=== PATIENT | female | born 1995 | race Caucasian/White ===

== ENCOUNTER → 2017-04-15 | Emergency (ER) | payer MEDICAID, OTHER ==
[~2017-04-15] MED LIST: ETON1VAG7 VG; GENT3.5O3 OP; NS(*) 0.9% 1000 ML BAG 1,000 ML IV ONE
--- NOTE | 2017-04-15 22:12 | ER Report ---
History and Physical Time Seen By MD: 22:07 HPI/ROS CHIEF COMPLAINT: Feeling shaky HISTORY OF PRESENT ILLNESS: This is a 22-year-old female. She's been feeling shaky today. It does seem to worsen when she gets up from a seated or laying down position. She has been drinking normally. No nausea or vomiting. No chest pain or palpitations. She denies any shortness of breath. She is having normal bowel movements. No problems with dysuria or urinary urgency. No vaginal bleeding or discharge or leakage of fluid. Baby is moving. 13 weeks and no problems with the thus far. No rashes or musculoskeletal pain. Allergies: Coded Allergies: peanut (Unverified Allergy, Unknown, 01/14/15) Home Meds Discontinued Reported Medications Etonogestrel/Ethinyl Estradiol (NUVARING VAGINAL RING) 1 Each Vag.ring, 1 EACH VG, VAG.RING 01/14/15 Discontinued Scripts Gentamicin Sulfate (GENTAK) 3.5 Gm Oint...g., 3.5 GM OP TID, #3.5 Prov:JOSE LUIS CHILDS DO 01/14/15 Reviewed Nurses Notes: Yes Hx Smoking: No Smoking Status: Never Smoker Hx Substance Use Disorder: No Hx Alcohol Use: No Constitutional Vital Sign - Last 24 Hours 04/15/17 04/15/17 04/15/17 04/15/17 21:55 21:58 21:59 22:03 Temp 98.0 Pulse 82 79 81 Resp 16 20 10 B/P (MAP) 130/77 (94) 130/77 Pulse Ox 100 100 94 O2 Delivery Room Air 04/15/17 04/15/17 04/15/17 04/15/17 22:08 22:13 22:18 22:23 Pulse 76 72 77 64 Resp 8 12 29 20 Pulse Ox 100 99 98 04/15/17 04/15/17 04/15/17 04/15/17 22:28 22:33 22:38 22:43 Pulse 63 73 67 71 04/15/17 04/15/17 04/15/17 04/15/17 22:48 22:53 22:58 23:03 Pulse 71 69 66 67 04/15/17 04/15/17 04/15/17 23:08 23:13 23:43 Pulse 68 77 85 Resp 16 B/P (MAP) 132/87 (102) Pulse Ox 95 O2 Delivery Room Air Physical Exam General Appearance: Alert, no acute distress. Eyes: Pupils equal and round no injection. ENT: Normal oral mucosa. Moist mucous membranes. Neck: Neck is supple and non tender. Respiratory: Chest is non tender, lungs are clear to auscultation. Cardiac: regular rate and rhythm Gastrointestinal: Abdomen is soft and non tender, no masses, bowel sounds normal. No CVA tenderness. Musculoskeletal: Extremities have full range of motion. Non tender. Skin: No rashes or lesions. DIFFERENTIAL DIAGNOSIS: After history and physical exam differential diagnosis was considered for feeling shaky, will check for urinary tract infection, check electrolytes and complete blood count. Will give a liter of normal saline and reevaluate. Medical Decision Making Data Points Result Diagram: 04/15/17222104/15/172221 Laboratory Hematology Test 04/15/17 21:53 04/15/17 22:22 Urine Color Colorless Urine Clarity Clear Urine pH 6.0 pH (4.8-9.5) Urine Specific Rudyard 1.001 Urine Protein Negative mg/dL (NEGATIVE) Urine Glucose (UA) Negative mg/dL (NEGATIVE) Urine Ketones Negative mg/dL (NEGATIVE) Urine Blood Negative (NEGATIVE) Urine Nitrite Negative (NEGATIVE) Urine Bilirubin Negative (NEGATIVE) Urine Urobilinogen Negative mg/dL (0.2-1.9) Urine Leukocyte Esterase Negative (NEGATIVE) Urine RBC None /HPF (0-2/HPF) Urine WBC <1 /HPF (0-5/HPF) Urine Squamous Epithelial Cells Few /LPF (</=FEW) Urine Bacteria Negative /HPF (NONE-FEW) Urine Mucus None /HPF (NONE-FEW) Red Blood Count 4.83 M/uL (4.17-5.56) Mean Corpuscular Volume 87.5 fL (80.0-96.0) Mean Corpuscular Hemoglobin 29.8 pg (26.0-33.0) Mean Corpuscular Hemoglobin Concent 34.0 g/dL (32.0-36.0) Red Cell Distribution Width 14.0 % (11.5-14.5) Mean Platelet Volume 9.0 fL (7.2-11.1) Neutrophils (%) (Auto) 73.6 % (39.4-72.5) Lymphocytes (%) (Auto) 20.1 % (17.6-49.6) Monocytes (%) (Auto) 5.6 % (4.1-12.4) Eosinophils (%) (Auto) 0.4 % (0.4-6.7) Basophils (%) (Auto) 0.3 % (0.3-1.4) Nucleated RBC Relative Count (auto) 0.0 /100WBC Neutrophils # (Auto) 11.0 K/uL (2.0-7.4) Lymphocytes # (Auto) 3.0 K/uL (1.3-3.6) Monocytes # (Auto) 0.8 K/uL (0.3-1.0) Eosinophils # (Auto) 0.1 K/uL (0.0-0.5) Basophils # (Auto) 0.1 K/uL (0.0-0.1) Nucleated RBC Absolute Count (auto) 0.01 K/uL Sodium Level 133 mmol/L (137-145) Potassium Level 3.6 mmol/L (3.5-5.0) Chloride Level 101 mmol/L (98-107) Carbon Dioxide Level 21 mmol/L (22-31) Blood Urea Nitrogen 5 mg/dl (7-18) Creatinine 0.60 mg/dl (0.52-1.04) Glomerular Filtration Rate Calc > 60.0 Random Glucose 98 mg/dl (75-110) Calcium Level 9.2 mg/dl (8.4-10.2) Total Bilirubin 0.4 mg/dl (0.2-1.3) Aspartate Amino Transf (AST/SGOT) 16 U/L (0-35) Alanine Aminotransferase (ALT/SGPT) 19 U/L (0-56) Alkaline Phosphatase 88 U/L (0-126) Total Protein 7.4 gm/dl (6.3-8.2) Albumin 4.0 g/dl (3.5-5.0) Chemistry Test 04/15/17 21:53 04/15/17 22:22 Urine Color Colorless Urine Clarity Clear Urine pH 6.0 pH (4.8-9.5) Urine Specific Rudyard 1.001 Urine Protein Negative mg/dL (NEGATIVE) Urine Glucose (UA) Negative mg/dL (NEGATIVE) Urine Ketones Negative mg/dL (NEGATIVE) Urine Blood Negative (NEGATIVE) Urine Nitrite Negative (NEGATIVE) Urine Bilirubin Negative (NEGATIVE) Urine Urobilinogen Negative mg/dL (0.2-1.9) Urine Leukocyte Esterase Negative (NEGATIVE) Urine RBC None /HPF (0-2/HPF) Urine WBC <1 /HPF (0-5/HPF) Urine Squamous Epithelial Cells Few /LPF (</=FEW) Urine Bacteria Negative /HPF (NONE-FEW) Urine Mucus None /HPF (NONE-FEW) White Blood Count 14.9 k/uL (4.5-11.0) Red Blood Count 4.83 M/uL (4.17-5.56) Hemoglobin 14.4 g/dL (12.0-16.0) Hematocrit 42.2 % (34.0-47.0) Mean Corpuscular Volume 87.5 fL (80.0-96.0) Mean Corpuscular Hemoglobin 29.8 pg (26.0-33.0) Mean Corpuscular Hemoglobin Concent 34.0 g/dL (32.0-36.0) Red Cell Distribution Width 14.0 % (11.5-14.5) Platelet Count 228 K/uL (150-450) Mean Platelet Volume 9.0 fL (7.2-11.1) Neutrophils (%) (Auto) 73.6 % (39.4-72.5) Lymphocytes (%) (Auto) 20.1 % (17.6-49.6) Monocytes (%) (Auto) 5.6 % (4.1-12.4) Eosinophils (%) (Auto) 0.4 % (0.4-6.7) Basophils (%) (Auto) 0.3 % (0.3-1.4) Nucleated RBC Relative Count (auto) 0.0 /100WBC Neutrophils # (Auto) 11.0 K/uL (2.0-7.4) Lymphocytes # (Auto) 3.0 K/uL (1.3-3.6) Monocytes # (Auto) 0.8 K/uL (0.3-1.0) Eosinophils # (Auto) 0.1 K/uL (0.0-0.5) Basophils # (Auto) 0.1 K/uL (0.0-0.1) Nucleated RBC Absolute Count (auto) 0.01 K/uL Glomerular Filtration Rate Calc > 60.0 Calcium Level 9.2 mg/dl (8.4-10.2) Total Bilirubin 0.4 mg/dl (0.2-1.3) Aspartate Amino Transf (AST/SGOT) 16 U/L (0-35) Alanine Aminotransferase (ALT/SGPT) 19 U/L (0-56) Alkaline Phosphatase 88 U/L (0-126) Total Protein 7.4 gm/dl (6.3-8.2) Albumin 4.0 g/dl (3.5-5.0) Urinalysis Test 04/15/17 21:53 Urine Color Colorless Urine Clarity Clear Urine pH 6.0 pH (4.8-9.5) Urine Specific Rudyard 1.001 Urine Protein Negative mg/dL (NEGATIVE) Urine Glucose (UA) Negative mg/dL (NEGATIVE) Urine Ketones Negative mg/dL (NEGATIVE) Urine Blood Negative (NEGATIVE) Urine Nitrite Negative (NEGATIVE) Urine Bilirubin Negative (NEGATIVE) Urine Urobilinogen Negative mg/dL (0.2-1.9) Urine Leukocyte Esterase Negative (NEGATIVE) Urine RBC None /HPF (0-2/HPF) Urine WBC <1 /HPF (0-5/HPF) Urine Squamous Epithelial Cells Few /LPF (</=FEW) Urine Bacteria Negative /HPF (NONE-FEW) Urine Mucus None /HPF (NONE-FEW) ED Course/Re-evaluation Clinical Indication for ER IV: Hydration, IV Access ED Course Labs unremarkable. The patient does feel better after liter of normal saline. She will rest and increase fluid intake and follow up with [facility] as planned. Decision to Disposition Date: Apr 15, 2017 Decision to Disposition Time: 23:37 Depart Departure Latest Vital Signs Vital Signs Date Time Temp Pulse Resp B/P (MAP) Pulse Ox O2 Delivery O2 Flow Rate FiO2 04/15/17 23:43 85 16 132/87 (102) 95 Room Air 04/15/17 21:59 98.0 Impression: Primary Impression: Hyponatremia Condition: Improved Disposition: HOME OR SELF-CARE Patient Instructions: Hyponatremia (ED) Additional Instructions: Rest and increase fluid intake over the next few days. Follow-up with your [employer] as planned. VONDA URBINA MD Apr 15, 2017 22:12
[2017-04-15 22:32] LABS: PLATELET COUNT, AUTOMATED 228 K/uL (150-450)
[2017-04-15 23:43] VITALS: BP 132/87
== END ==
LOC: ER 22:00
DX: O26.891 Other specified pregnancy related conditions, first trimester (principal); Z3A.13 13 weeks gestation of pregnancy
CPT/HCPCS: 81001; 85025; 96360; 99284; J7030; 82040; 82247; 82310; 82374; 82435; 82565; 82947; 84075; 84132; 84155; 84295; 84450; 84460; 84520

== ENCOUNTER 2017-09-01 17:33 | Outpatient (CLI) | payer OTHER, MEDICAID ==
[~2017-09-01] VITALS: Ht 170.2 cm; Wt 83.0 kg
[~2017-09-01 17:33] MED LIST changes: -NS(*) 0.9% 1000 ML BAG 1,000 ML IV ONE
[2017-09-01] MEDS ORDERED: LR(*) 1000 ML BAG 1,000 ML ONE (18:35)
[2017-09-01] MEDS ORDERED: LR(*) 1000 ML BAG 1,000 ML IV PRN (18:39)
[2017-09-01 18:46] VITALS: BP 116/73; Ht 170.2 cm; Wt 83.0 kg
--- NOTE | 2017-09-01 20:42 | RADIOLOGY IMAGING REPORT ---
FACILITY: [facility] - [place] PATIENT NAME: Carlee Garber : 1995 MR: [id number] V: [id number] EXAM DATE: ORDERING PHYSICIAN: GOMEZ PEREZ TECHNOLOGIST: Location: [facility] - [place] Patient: Carlee Garber : 1995 Visit/Account:[id number] Date of Sevice: 09/01/2017 ultrasound: Indication: Vaginal bleeding and contractions. By clinical dating, the gestational age is 33 weeks 4 days. Technique: Limited evaluation, with Doppler. Comparison: None available. position and heart rate: There is a single live intrauterine gestation in a cephalic presentati on. The heart rate is 144. anatomy: Unremarkable, as visualized. A detailed anatomical survey was not performed. Measurements, EFA, and EDC: The BPD measures 8.4 cm, head circumference 30.3 cm, abdominal circumfere nce 29.2 cm, and femur length is 6.4 cm. The estimated age is 33 weeks 4 days. The EDC is 10/16/2017. T he EFW is 2156 g, 33rd percentile. Placenta: Anterior and homogeneous. There are no signs of placenta previa or abruption. Cervical length: Measures 4.6 cm. The cervix is closed. There is no evidence of funneling. Amniotic fluid: The DREW measures 19.0 cm. The largest fluid pocket was 6.4 cm. IMPRESSION: There is a single live intrauterine gestation in a cephalic presentation, as detailed abo ve. The estimated age is 33 weeks 4 days. No acute abnormality is identified. Report Dictated By: Ricky Munoz MD at 09/01/2017 8:29 PM Report E-Signed By: Ricky Munoz MD at 09/01/2017 8:38 PM WSN:[id number]
[2017-09-01] MEDS ORDERED: NIFEdipine 10 MG CAP PO PRN ×2 (21:10→23:35)
[2017-09-01] MEDS ORDERED: ACETAMINOPHEN 325 MG TAB PO PRN (21:25)
== END 2017-09-01 23:10 | disposition home or self-care (01) ==
LOC: UNDOADMIN 17:33 → OB 17:33 → L&D 17:33 → OB 17:33 → L&D 23:10 → UNDODISIN 23:10 → EDSTATUS 09-02 10:31
PROVIDERS: ATTEND Student in an Organized Health Care Education/Training Program
DX: O26.893 Other specified pregnancy related conditions, third trimester (principal); Z3A.33 33 weeks gestation of pregnancy
CPT/HCPCS: 59025; 76817; 81001; 99213; J7120

== ENCOUNTER 2017-09-24 21:11 | Outpatient (CLI) | payer OTHER, MEDICAID ==
[2017-09-01 18:46] VITALS: BMI 28.7
[2017-09-24] MEDS ORDERED: DLR(*) 1000 ML BAG 1,000 ML IV SCH (21:14)
[2017-09-24] MEDS ORDERED: FAMOTIDINE(*) 20MG/50ML PREMIX 50 ML IVPB PRN (21:14)
[2017-09-24] MEDS ORDERED: LR(*) 1000 ML BAG 1,000 ML IV SCH (21:14)
[2017-09-24] MEDS ORDERED: OXYTOCIN 30 UNIT/D5LR 500 ML 500 ML IV PRN (21:14)
[2017-09-24] MEDS ORDERED: fentaNYL CITR 100 MCG/2 ML AMP IVP PRN (21:15)
[2017-09-24] MEDS ORDERED: cefOXitin/DEX(*) 2GM/50ML PREM 50 ML IVPB PRN (21:15)
[2017-09-24] MEDS ORDERED: LIDOCAINE/SOD BICARB 8.4% SYR SC PRN (21:15)
[2017-09-24] MEDS ORDERED: METOCLOPRAMIDE 10 MG/2 ML SDV IVP PRN (21:15)
[2017-09-24] MEDS ORDERED: LIDOCAINE 1% LOCAL 300 MG/30ML INJ PRN (21:15)
[2017-09-24 22:19] LABS: PLATELET COUNT, AUTOMATED 204 K/uL (150-450)
== END 2017-09-25 00:05 | disposition home or self-care (01) ==
LOC: OB 21:11 → L&D 21:11 → UNDOADMIN 21:11 → OB 21:11 → L&D 09-25 00:05 → UNDODISIN 09-25 00:05 → EDSTATUS 09-27 10:55
PROVIDERS: ATTEND Obstetrics & Gynecology
DX: O47.1 False labor at or after 37 completed weeks of gestation (principal); Z3A.39 39 weeks gestation of pregnancy
CPT/HCPCS: 36415; 81001; 85025; 86850; 86900; 86901; 99213

== ENCOUNTER 2017-10-08 20:00 | Observation (INO) | payer OTHER, MEDICAID ==
[~2017-10-08] VITALS: Ht 170.2 cm; Wt 85.7 kg
[2017-10-08] MEDS ORDERED: LR(*) 1000 ML BAG 1,000 ML IV SCH (20:02)
[2017-10-08] MEDS ORDERED: OXYTOCIN 30 UNIT/D5LR 500 ML 500 ML IV PRN (20:02)
[2017-10-08] MEDS ORDERED: FAMOTIDINE(*) 20MG/50ML PREMIX 50 ML IVPB PRN (20:02)
[2017-10-08] MEDS ORDERED: ceFAZolin(*) 2GM/D5W 50ML 50 ML IVPB PRN (20:02)
[2017-10-08] MEDS ORDERED: FLUSH 10 ML SYR IVP PRN (20:05)
[2017-10-08] MEDS ORDERED: LIDOCAINE 1% LOCAL 300 MG/30ML INJ PRN (20:05)
[2017-10-08] MEDS ORDERED: LIDOCAINE/SOD BICARB 8.4% SYR SC PRN (20:05)
[2017-10-08] MEDS ORDERED: METOCLOPRAMIDE 10 MG/2 ML SDV IVP PRN (20:05)
[2017-10-08] MEDS ORDERED: fentaNYL CITR 100 MCG/2 ML AMP IVP PRN (20:05)
[2017-10-08 20:30] VITALS: BP 124/70; Ht 170.2 cm; Wt 85.7 kg
[2017-10-08] MEDS ORDERED: ACET500T68 PO (21:02)
[2017-10-08] MEDS ORDERED: ACETAMINOPHEN 500 MG TAB PO PRN (21:05)
== END 2017-10-08 22:31 | disposition home or self-care (01) ==
LOC: INTOOBSV 20:00 → UNDOADMOB 20:00 → OB 20:00 → UNDODISOB 22:50
PROVIDERS: ADMIT Student in an Organized Health Care Education/Training Program; ATTEND Student in an Organized Health Care Education/Training Program
DX: O26.893 Other specified pregnancy related conditions, third trimester (principal); Z3A.38 38 weeks gestation of pregnancy
CPT/HCPCS: G0378; G0379

== ENCOUNTER 2017-10-15 19:23 | Inpatient (IN) | payer OTHER, MEDICAID ==
[~2017-10-15] VITALS: Ht 170.2 cm; Wt 90.7 kg
[~2017-10-15 19:23] MED LIST changes: +ACET500T68 PO
[2017-10-15] MEDS ORDERED: FAMOTIDINE(*) 20MG/50ML PREMIX 50 ML IVPB PRN (19:44)
[2017-10-15] MEDS ORDERED: OXYTOCIN 30 UNIT/D5LR 500 ML 500 ML IV PRN (19:44)
[2017-10-15] MEDS ORDERED: cefOXitin/DEX(*) 2GM/50ML PREM 50 ML IVPB PRN (19:45)
[2017-10-15] MEDS ORDERED: fentaNYL CITR 100 MCG/2 ML AMP IVP PRN (19:45)
[2017-10-15] MEDS ORDERED: METOCLOPRAMIDE 10 MG/2 ML SDV IVP PRN (19:45)
[2017-10-15] MEDS ORDERED: DINOPROSTONE 10 MG INSERT PV ONE (19:45)
[2017-10-15] MEDS ORDERED: FLUSH 10 ML SYR IVP PRN (19:45)
[2017-10-15] MEDS ORDERED: LIDOCAINE 1% LOCAL 300 MG/30ML INJ PRN (19:45)
[2017-10-15] MEDS ORDERED: LIDOCAINE/SOD BICARB 8.4% SYR SC PRN (19:45)
[2017-10-15 20:06] LABS: PLATELET COUNT, AUTOMATED 216 K/uL (150-450)
[2017-10-15 20:09] VITALS: BP 131/81
[2017-10-15 20:11] VITALS: Ht 170.2 cm; Wt 90.7 kg
[2017-10-15] MEDS: DLR(*) 1000 ML BAG 1,000 ML IV PRN (20:44)
[2017-10-15] MEDS: ACETAMINOPHEN 325 MG TAB PO PRN (23:51)
[2017-10-16] VITALS (13 sets, daily range): BP systolic 105–140; BP diastolic 72–100
[2017-10-16] MEDS: LR(*) 1000 ML BAG 1,000 ML IV PRN ×2 (04:48→12:31)
[2017-10-16] MEDS: DLR(*) 1000 ML BAG 1,000 ML IV PRN ×2 (04:48→13:50)
--- NOTE | 2017-10-16 09:20 | History & Physical ---
History of Present Illness Age of Patient: 22 : 1 Para or TPAL: 0000 EDC per LMP: Oct 16, 2017 Estimated Gestational Age: 40 Chief Complaint IOL History of Present Illness The patient is a 22 year old 1 para 0000 admitted at 40 weeks estimated gestational age with an estimated date of delivery 10/16/17 . Patient is admitted for induction of labor . No vaginal bleeding. Good movement and occasional contractions. She was evaluated for active labor. She had an uncomplicated course. Her record was reviewed. Cervadil was placed last pm and contracted slowly over night. History Allergies: Coded Allergies: peanut (Unverified Allergy, Unknown, 01/14/15) Med Rec Home Meds Reported Medications Acetaminophen (TYLENOL EXTRA STRENGTH) 500 Mg Tablet, 500 MG PO, TAB 10/08/17 Exam General Exam Vital Signs Vital Signs Date Time Temp Pulse Resp B/P (MAP) Pulse Ox O2 Delivery O2 Flow Rate FiO2 10/15/17 20:09 98.4 98 16 131/81 (98) 96 Room Air Cardiovascular: Regular Rate and Rhythm Respiratory: Clear to Auscultation Abdomen: Gravid - Non-Tender Extremities: No Edema (4) Cervical Dialation: 4 Cervical Effacement (%): 75 Cervical Consistency: Soft Cervical Position: Mid Station: -1 Presentation: Vertex Uterine Contractions(Q min): 2 Uterine Contraction Strength: Moderate Fetus Heart Tones: 130 Heart Tone Variabilty: Moderate FHT Category: I Medical Decision Making Data Points Result Diagram: 10/15/171952 Assessment and Plan Problems: (1) Normal Assessment & Plan: elective induction of labor. minimal change last night will start pitocin and monitor for change Copies to: MAGGIE FRANCISCO MD Problem Qualifiers (1) Normal : Trimester: third trimester Qualified Codes: Z34.93 - Encounter for supervision of normal , unspecified, third trimester MAGGIE FRANCISCO MD Oct 16, 2017 09:20
--- NOTE | 2017-10-16 11:06 | Labor Progress Note ---
Labor Subjective Progress Notes Subjective feeling contractions Labor Pain: Moderate Labor Objective Vital Signs Vital Signs Date Time Temp Pulse Resp B/P (MAP) Pulse Ox O2 Delivery O2 Flow Rate FiO2 10/15/17 20:09 98.4 98 16 131/81 (98) 96 Room Air Cervical Dialation: 4 Cervical Effacement (%): 75 Cervical Consistency: Soft Cervical Position: Anterior Station: -1 Presentation: Vertex Uterine Contractions(Q min): 3 Uterine Contraction Strength: Moderate Fetus Heart Tones: 120 Heart Tone Variabilty: Moderate FHT Accelerations: 15X15 FHT Category: I Other Result Diagram: 10/15/171952 Assessment and Plan Problems: (1) Normal (2) Active labor at term Assessment & Plan: arom clear fluid, will monitor for cervical change Problem Qualifiers (1) Normal : Trimester: third trimester Qualified Codes: Z34.93 - Encounter for supervision of normal , unspecified, third trimester MAGGIE FRANCISCO MD Oct 16, 2017 11:06
[2017-10-16] MEDS ORDERED: IBUP800T37 PO (11:12)
--- NOTE | 2017-10-16 11:13 | OB/GYN Discharge Summary ---
MAGGIE DIEZ MD 10/16/17 1113: Discharge Summary Reason for Hosp/Final Diag: (1) Normal Status: Resolved (2) Active labor at term Status: Resolved (3) care following delivery Status: Acute Hospital Course & Plan: PLTCS performed, on day 2, Pain controlled, Tolerating diet and activity. Baby . Normal lochia. Lates Vital Signs Vital Signs Date Time Temp Pulse Resp B/P (MAP) Pulse Ox O2 Delivery O2 Flow Rate FiO2 10/15/17 20:09 98.4 98 16 131/81 (98) 96 Room Air Weight (Pounds): 200 Result Diagram: 10/15/171952 Condition: Improved Discharge: Home, Self Shelter Meds Active Scripts Oxycodone Hcl/Acetaminophen (OXYCODONE-ACETAMINOPHEN 5-325) 1 Each Tablet, 1 EACH PO Q4H Y for PAIN, #30 TAB 0 Refills TAKE 1 TABLET NEEDED FOR PAIN - NO CLOSER THAN EVERY 4 HOURS. Prov:MAGGIE DIEZ MD 10/16/17 Ibuprofen (IBUPROFEN) 800 Mg Tablet, 1 TAB PO Q8H, #30 TAB 0 Refills Take with food every 8 hours. Prov:MAGGEI DIEZ MD 10/16/17 Reported Medications Acetaminophen (TYLENOL EXTRA STRENGTH) 500 Mg Tablet, 500 MG PO, TAB 10/08/17 [facility] [phone], Dr. Diez [phone] Follow up in: 6 wks PP or PO, 2 wks PO Discharge Diet: As Tolerates Discharge Activity: Pelvic Rest Copies to: MAGGIE DIEZ MD, MARK F MD 10/19/17 8607: Discharge Summary Reason for Hosp/Final Diag: (1) care following delivery Status: Acute Hospital Course & Plan: After for failure of descent in Stage 2 of labor, the patient had no postoperative complications. Her activities and diet were appropriately advanced. Her required phototherapy for hyperbilirubinemia. The patient was discharged to home or to rooming-in status on the third postop day. She had good analgesia on only Ibuprofen and Tylenol, but had nausea with opioid analgesics. Result Diagram: 10/15/171952 Condition: Improved Discharge: Home, Self Shelter Meds Active Scripts Oxycodone Hcl/Acetaminophen (OXYCODONE-ACETAMINOPHEN 5-325) 1 Each Tablet, 1 EACH PO Q4H Y for PAIN, #30 TAB 0 Refills TAKE 1 TABLET NEEDED FOR PAIN - NO CLOSER THAN EVERY 4 HOURS. Prov:MAGGIE DIEZ MD 10/16/17 Ibuprofen (IBUPROFEN) 800 Mg Tablet, 1 TAB PO Q8H, #30 TAB 0 Refills Take with food every 8 hours. Prov:MAGGIE DIEZ MD 10/16/17 Reported Medications Acetaminophen (TYLENOL EXTRA STRENGTH) 500 Mg Tablet, 500 MG PO, TAB 10/08/17 Follow up with: Dr. Diez [phone] Follow up in: 2 wks PO Discharge Diet: As Tolerates Discharge Activity: As Tolerates, No Heavy Lifting x 6 wks Special Instructions: Discussed discharge precautions and activity limitations. Copies to: MAGGIE DIEZ MD Problem Qualifiers (1) Normal : Trimester: third trimester Qualified Codes: Z34.93 - Encounter for supervision of normal , unspecified, third trimester MAGGIE DIEZ MD Oct 16, 2017 11:13 AUBRIE VELEZ MD Oct 19, 2017 08:16
[2017-10-16] MEDS ORDERED: FENTANYL/ROPIVACAINE 100 ML BAG EPI PRN (11:25)
[2017-10-16] MEDS ORDERED: LIDO/EPI 2% MPF 1:200,000 20ML EPI PRN (11:25)
[2017-10-16] MEDS ORDERED: fentaNYL CITR 100 MCG/2 ML AMP IT PRN (11:25)
[2017-10-16] MEDS ORDERED: BUPIVACAINE 0.5% INJ 30ML VIAL EPI PRN (11:25)
[2017-10-16] MEDS ORDERED: LIDOCAINE/PF 2% 200MG/10ML AMP 200 MG/10 ML AMPUL EPI PRN (11:25)
[2017-10-16] MEDS ORDERED: EPIDURAL KEYS XX PRN (11:25)
[2017-10-16] MEDS ORDERED: BUPIVACAINE 0.25% MPF INJ EPI PRN (11:25)
--- NOTE | 2017-10-16 12:38 | Anesthesia OB Pre-Anes Eval ---
History of Present Illness Anesthesia Start Time: 11:30 OB Anesthesia Diagnosis: induction - medical EDC: Oct 16, 2017 : 1 Para: 0 Pain Ratin Heart Tones: 131 Result Diagram: 10/15/171952 Height (Inches): 67.00 Weight (Pounds): 200 BMI Calculated: 31.32 Past Medical History Medical History: no pertinent history Surgical History: noncontributory, tonsillectomy, other (ankle surgery PONV) Previous Anesthesia: general Attended Childbirth Classes?: No Hx Anesthesia Reactions: No Hx Family Anesthesia Reaction: No Current Medications: pitocin Home Meds Active Scripts Ibuprofen (IBUPROFEN) 800 Mg Tablet, 1 TAB PO Q8H, #30 TAB 0 Refills Take with food every 8 hours. Prov:MAGGIE FRANCISCO MD 10/16/17 Reported Medications Acetaminophen (TYLENOL EXTRA STRENGTH) 500 Mg Tablet, 500 MG PO, TAB 10/08/17 Allergies: Coded Allergies: peanut (Unverified Allergy, Unknown, 01/14/15) Anesthesia OB ROS Airway Class: ll GI ROS: clear liquids Last Solids Date: Oct 16, 2017 Last Solids Time: 06:30 ASA Classification: 2 Assessment and Plan Anesthesia Plan: MIRIAM SAWYER CRNA Oct 16, 2017 12:38
--- NOTE | 2017-10-16 12:42 | Procedure Note ---
Anesthetic Placement Note Anesthesia Plan: CSE Permit for Anesthesia Signed: Yes Anesthesia Technique: Patient Sitting Anesthesia Prep: Chlorhexidine Interspace: L 4-5 Local Anesthetic: 1% Lidocaine, 25 Gauge Needle Amount Local - cc's: 3 Anesthesia Needle: 17g Touhy/Schliff Anesthesia Attempts: 1 Loss of Resistance: Normal Saline Depth of FAIZA (cm): 7 Epidural Needle Placement: No CSF, No Blood, No Parasthesia Intrathecal Needle: 27 Gauge Pencan Cerebral Spinal Fluid: Yes, Clear Catheter Insertion (cm): 11 Catheter Type: Flores - Spring Wound Epidural Dressing: Tegaderm, Tape, Adhesive Tibbie Anesthesia Tray: Lot Number ([id number]), Expiration Date (2018-11-11), Reference Number ([id number]) Anesthesia Medications: Intrathecal Dose: mcg Fentanyl (10), mg Marcaine MPF (2.5) Epidural Test Dose: 1.5 Lido/Epi (1:200,000), Dose - mL (3), Time (1215), Negative Epidural Loading Dose: 0.2% Ropivicaine, With Fentanyl 2mcg/ml, Dose - ml (10) , Time (1222) Epidural Infusion: 0.2% Ropivicaine, With Fentanyl 2mcg/ml, Start Time: (1226) Epidural Pump Setting: Bolus Dose - mL (5), Lockout - Minutes (15), Maintenance Rate - mL/hr (10), Maximum per Hour - mL (30) Complications: None MIRIAM CESAR CRNA Oct 16, 2017 12:42
[2017-10-16] MEDS ORDERED: NS(*) 0.9% 1000 ML BAG 1,000 ML ONE (14:34)
[2017-10-16] MEDS ORDERED: NS(*) 0.9% 1000 ML BAG 1,000 ML PV PRN (14:38)
--- NOTE | 2017-10-16 14:38 | Labor Progress Note ---
Labor Subjective Progress Notes Subjective comfortable with epidural Vaginal Discharge/Fluid: Bloody Show Labor Pain: Comfortable Labor Objective Vital Signs Vital Signs Date Time Temp Pulse Resp B/P (MAP) Pulse Ox O2 Delivery O2 Flow Rate FiO2 10/15/17 20:09 98.4 98 16 131/81 (98) 96 Room Air Cervical Dialation: 8 Cervical Effacement (%): 95 Cervical Consistency: Soft Cervical Position: Anterior Station: 0 Presentation: Vertex Fetus Heart Tones: 130 Heart Tone Variabilty: Moderate FHT Decelerations: Variable FHT Category: I, II Other Result Diagram: 10/15/171952 Assessment and Plan Problems: (1) Normal (2) Active labor at term Assessment & Plan: IUPC PLACED WILL START AMNIOINFUSION FOR VARIABLE DECELERATIONS Problem Qualifiers (1) Normal : Trimester: third trimester Qualified Codes: Z34.93 - Encounter for supervision of normal , unspecified, third trimester MAGGIE FRANCISCO MD Oct 16, 2017 14:38
--- NOTE | 2017-10-16 15:14 | Labor Progress Note ---
Labor Subjective Progress Notes Subjective comfortable with epidural Vaginal Discharge/Fluid: Bloody Show Labor Objective Vital Signs Vital Signs Date Time Temp Pulse Resp B/P (MAP) Pulse Ox O2 Delivery O2 Flow Rate FiO2 10/15/17 20:09 98.4 98 16 131/81 (98) 96 Room Air Cervical Dialation: 8 Cervical Effacement (%): 95 Station: 0 Presentation: Vertex Uterine Contractions(Q min): 6 Fetus Heart Tones: 130 Heart Tone Variabilty: Moderate FHT Accelerations: 10X10 FHT Decelerations: Early FHT Category: II Other Result Diagram: 10/15/171952 Assessment and Plan Problems: (1) Normal (2) Active labor at term Assessment & Plan: period of bradycardia FSE placed pitocin stopped will monitor for cervical change Problem Qualifiers (1) Normal : Trimester: third trimester Qualified Codes: Z34.93 - Encounter for supervision of normal , unspecified, third trimester MAGGIE FRANCISCO MD Oct 16, 2017 15:14
--- NOTE | 2017-10-16 16:31 | Labor Progress Note ---
Labor Subjective Progress Notes Subjective comfortable with epidural Vaginal Discharge/Fluid: Bloody Show Labor Objective Vital Signs Vital Signs Date Time Temp Pulse Resp B/P (MAP) Pulse Ox O2 Delivery O2 Flow Rate FiO2 10/15/17 20:09 98.4 98 16 131/81 (98) 96 Room Air Cervical Dialation: 10 Station: +1 Presentation: Vertex Uterine Contractions(Q min): 3 Uterine Contraction Strength: Strong Fetus Heart Tones: 130 FHT Accelerations: 10X10 FHT Decelerations: Variable FHT Category: II Other Result Diagram: 10/15/171952 Assessment and Plan Problems: (1) Normal (2) Active labor at term Assessment & Plan: complete will labor down if able, anticipate vaginal delivery Problem Qualifiers (1) Normal : Trimester: third trimester Qualified Codes: Z34.93 - Encounter for supervision of normal , unspecified, third trimester MAGGIE FRANCISCO MD Oct 16, 2017 16:31
--- NOTE | 2017-10-16 17:42 | Labor Progress Note ---
Labor Subjective Progress Notes Subjective COMFORTABLE WITH EPIDURAL Vaginal Discharge/Fluid: Bloody Show Labor Pain: Comfortable Labor Objective Vital Signs Vital Signs Date Time Temp Pulse Resp B/P (MAP) Pulse Ox O2 Delivery O2 Flow Rate FiO2 10/15/17 20:09 98.4 98 16 131/81 (98) 96 Room Air Cervical Dialation: 10 Station: +1 Presentation: Vertex Uterine Contractions(Q min): 3 Fetus Heart Tones: 120 Heart Tone Variabilty: Moderate FHT Decelerations: Variable FHT Category: II Other Result Diagram: 10/15/171952 Assessment and Plan Problems: (1) Normal (2) Active labor at term Assessment & Plan: PATIENT COMPLETE AND PUSHING STILL WITH VARIABILITY WILL CONTINUE TO PUSH Problem Qualifiers (1) Normal : Trimester: third trimester Qualified Codes: Z34.93 - Encounter for supervision of normal , unspecified, third trimester MAGGIE FRANCISCO MD Oct 16, 2017 17:42
--- NOTE | 2017-10-16 18:55 | Labor Progress Note ---
Labor Subjective Progress Notes Subjective PUSHING Labor Objective Vital Signs Vital Signs Date Time Temp Pulse Resp B/P (MAP) Pulse Ox O2 Delivery O2 Flow Rate FiO2 10/15/17 20:09 98.4 98 16 131/81 (98) 96 Room Air Station: +1 Uterine Contractions(Q min): 3 Fetus Heart Tones: 130 Heart Tone Variabilty: Moderate FHT Decelerations: Variable FHT Category: II Other Result Diagram: 10/15/171952 Assessment and Plan Problems: (1) Normal (2) Active labor at term Assessment & Plan: PUSHING WITHOUT DESCENT, CONCERN WITH CPD, WILL CONTINUE TO PUSH BUT MAY NEED OPERATIVE DELIVERY Problem Qualifiers (1) Normal : Trimester: third trimester Qualified Codes: Z34.93 - Encounter for supervision of normal , unspecified, third trimester MAGGIE FRANCISCO MD Oct 16, 2017 18:55
[2017-10-16] MEDS ORDERED: MORPHINE PF 5 MG/10 ML AMP ONE (19:36)
[2017-10-16] MEDS ORDERED: MIDAZOLAM 2 MG/2 ML VIAL ONE ×2 (19:57→20:04)
[2017-10-16] MEDS ORDERED: PHENYLEPHRINE/NS/PF 0.4MG/10ML ONE (20:02)
[2017-10-16] MEDS ORDERED: ONDANSETRON 4 MG/2 ML VIAL ONE (20:02)
[2017-10-16] MEDS ORDERED: OXYTOCIN 10 UNIT/ML SDV ONE ×2 (20:02)
[2017-10-16] MEDS ORDERED: DEXAMETHASONE SOD 4 MG/ML VIAL ONE (20:02)
[2017-10-16] MEDS ORDERED: OXYTOCIN 30 UNIT/D5LR 500 ML 500 ML ONE (20:02)
[2017-10-16] MEDS ORDERED: KETOROLAC 30 MG/ML VIAL ONE (20:20)
[2017-10-16] MEDS ORDERED: MISOPROSTOL 200 MCG TAB ONE ×3 (20:21→20:23)
[2017-10-16] MEDS ORDERED: OXYTOCIN 30 UNIT/LR 500 ML 500 ML IV PRN (21:26)
[2017-10-16] MEDS ORDERED: FAMOTIDINE(*) 20MG/50ML PREMIX 50 ML IVPB PRN (21:26)
[2017-10-16] MEDS ORDERED: DLR(*) 1000 ML BAG 1,000 ML IV PRN (21:26)
--- NOTE | 2017-10-16 21:26 | Post Operative Note ---
Operative Note - CONTRACT SPECIALIST Operative Day Date: Oct 16, 2017 Time: 19:45 Physicians Surgeon: NOLAN Lay Out Worker: ALBERTO MEDEIROS RN FA Anesthesia: ITALO CESAR Diagnosis Pre-Op Diagnosis: IUP AT 39 6/7 FTP Post-Op Diagnosis: SAME UTERINE ATONY Procedure Findings: MALE APGARS 9,9 WT. 3304 GMS NORMAL UT. OV. TUBES [id number] Procedure(s): PLTCS Complications: 0 Fluids Fluids: 2500 CC LR IV Estimated Blood Loss: 1000 CC Dictated Date OP Note Dictated: Oct 16, 2017 Time OP Note Dictated: 21:36 Copies to: MAGGIE FRANCISCO MD, JOHN MD Oct 16, 2017 21:26
[2017-10-16] MEDS ORDERED: PROMETHAZINE 25 MG/ML 1 ML AMP IVP PRN (21:30)
[2017-10-16] MEDS ORDERED: LANOLIN OINT 7 GM TUBE TP PRN (21:30)
[2017-10-16] MEDS ORDERED: INFLUENZA VIRUS VAC 0.5 ML SYR IM ONLY ONE (21:30)
[2017-10-16] MEDS ORDERED: FLUSH 10 ML SYR IVP PRN (21:30)
[2017-10-16] MEDS ORDERED: ONDANSETRON 4 MG/2 ML VIAL IV PRN (21:30)
[2017-10-16] MEDS ORDERED: METOCLOPRAMIDE 10 MG/2 ML SDV IV PRN (21:30)
--- NOTE | 2017-10-16 21:41 | Anesthesia Progress Note ---
Assessment and Plan Assessment: patient to OR for C/Section 2/2 failure to progress. See OR chart for anesthesia charting for procedure. Anesthesia Stop Day: Oct 16, 2017 Anesthesia Stop Time: 20:42 MIRIAM CESAR CRNA Oct 16, 2017 21:41
[2017-10-16] MEDS ORDERED: OXYC-373 PO (21:58)
[2017-10-17] VITALS (11 sets, daily range): BP systolic 106–127; BP diastolic 62–82
[2017-10-17] MEDS ORDERED: KETOROLAC 30 MG/ML VIAL IVP SCH
[2017-10-17] MEDS: LR(*) 1000 ML BAG 1,000 ML IV PRN ×2 (01:06→09:19)
[2017-10-17] MEDS: cefOXitin/DEX(*) 1GM/50ML PREM 50 ML IVPB SCH ×4 (01:06→17:34)
[2017-10-17 07:04] LABS: PLATELET COUNT, AUTOMATED 167 K/uL (150-450)
--- NOTE | 2017-10-17 08:08 | OB/GYN Progress Note ---
OB Subjective Progress Notes Subjective Pain controlled, Tolerating diet and activity. Baby . Normal lochia. GI: POS Flatus, NEG Nausea, NEG Vomiting Pain: Mild OB Objective Physical Exam Vital Signs Date Time Temp Pulse Resp B/P (MAP) Pulse Ox O2 Delivery O2 Flow Rate FiO2 10/17/17 05:00 98.4 94 16 109/66 (80) 94 Room Air 10/17/17 00:00 2.0 Intake and Output 10/18/17 07:00 Intake Total 50 ml Balance 50 ml IV Total 50 ml Cardiovascular: Regular Rate and Rhythm Respiratory: Clear to Auscultation Abdomen: Soft, Non-Tender, Non-Distended, Bowel Sounds Present, Fundus Firm Extremities: No Edema (4) Result Diagram: 10/17/17 0648 Assessment and Plan Problems: (1) Normal Status: Resolved (2) Active labor at term Status: Resolved (3) care following delivery Assessment & Plan: Pain controlled, Tolerating diet and activity. Baby . Normal lochia. Problem Qualifiers (1) Normal : Trimester: third trimester Qualified Codes: Z34.93 - Encounter for supervision of normal , unspecified, third trimester MAGGIE FRANCISCO MD Oct 17, 2017 08:08
[2017-10-17] MEDS ORDERED: BISACODYL 10 MG SUPP PR PRN (08:10)
[2017-10-17] MEDS: SIMETHICONE 80 MG CHEW CHEW SCH ×4 (08:54→17:53)
[2017-10-17] MEDS: KETOROLAC 30 MG/ML VIAL IVP SCH ×2 (08:54→14:26)
[2017-10-17] MEDS: FAMOTIDINE 20 MG TAB PO SCH ×2 (08:54→21:34)
[2017-10-17] MEDS: DOCUSATE CALCIUM 240 MG CAP PO SCH ×2 (08:54→21:34)
--- NOTE | 2017-10-17 10:24 | BRAGG C-SECTION ---
EVENT DATE: October 16, 2017 SURGEON: Dustin iDez MD ANESTHESIOLOGIST: Carlos Enrique Harvey CRNA ANESTHESIA: [*] FINANCIAL ACCOUNTANT: Chester Rudolph, NAVID, SENIOR ENGINEERING ASSOCIATE PREOPERATIVE DIAGNOSIS 1. Intrauterine at 39 and 6/7 weeks. 2. Failure to progress. POSTOPERATIVE DIAGNOSIS 1. Intrauterine at 39 and 6/7 weeks. 2. Failure to progress. 3. Uterine atony. PROCEDURE PERFORMED Primary low transverse section. COMPLICATIONS None. FLUIDS 2500 mL of lactated ringers IV. ESTIMATED BLOOD LOSS 1000 mL. INDICATIONS The patient is 22-year-old, 1 admitted for elective induction of labor on the evening of October 15, 2017. She was given Cervidil and made very slow progress over the night with 4 cm on the morning of October 16, 2017. She received an epidural, was augmented with Pitocin. Artificial rupture of membranes was performed with clear fluid. She made slow but adequate progress thoughout the day, progressed to complete. Pushed for two hours without progress. After discussion of risks and alternatives, the patient desired to proceed with primary . FINDINGS Male with Apgars 9 at one minute and 9 at five minutes, weighing 3304 grams. Normal uterus, ovaries and tubes. PROCEDURE After informed consent was obtained, the patient was taken to the operating room with the IV running and placed in the supine position with a leftward tilt. She was prepped and draped in the usual fashion. A Cai catheter had already been placed in the Labor and Delivery Suite. A Pfannenstiel skin incision was made with a scalpel and carried through to the underlying layer of fascia with the Bovie. The fascia was nicked in the midline and extended laterally with Virk scissors. The rectus fascia was dissected off the rectus muscles with both blunt and sharp dissection at the superior and inferior aspect of the incision. The rectus muscles were divided in the midline. The peritoneum was entered sharply with Metzenbaum scissors. The peritoneal incision was extended superiorly and inferiorly with good visualization of the bladder. A bladder blade was placed. A bladder flap was created with Metzenbaum scissors. The bladder blade was then replaced and a low transverse uterine incision made with a scalpel, extended laterally with digital technique of the barn operator. The 's vertex was delivered through the uterine incision. The oropharynx and nasopharynx were bulb suctioned. There was meconium stained fluid noted. There was a nuchal cord x1, which was delivered around the head as necessary for delivery. The remainder of the delivered with ease. Again the oropharynx and nasopharynx were bulb suctioned. The cord was clamped x2 and cut. The was handed to Dr. Wesley, who was the poolroom table attendant in attendance for delivery. Cord blood and cord pH were both obtained. Cord pH was 7.2. The placenta delivered intact manually. The uterus was exteriorized and cleared of all clot and debris. The uterine incision was closed with 0 Vicryl in a running locked fashion. A second imbricating layer of 0 Vicryl was used. The posterior cul-de-sac was irrigated. 40 units of Pitocin had been given in the IV to help firm the uterus. However, at time of suctioning the posterior cul-de-sac, the uterus was atonic. Uterine massage was initiated. Additional Pitocin was initiated along with 0.2 Methergine IM. After the uterotonics were given, the uterus increased in tone. The uterine incision was once again inspected and noted to be hemostatic. The uterus was returned to the abdominal cavity. The left and right pericolic gutter were cleared of all clot and debris. The uterine incision was once again inspected and noted to be hemostatic. The peritoneum and rectus muscles were approximated with 3-0 Vicryl Plus in a running fashion. The subfascial compartment was inspected and any bleeding made hemostatic with a Bovie and irrigation was performed. The fascia was close with 0 Vicryl in a running fashion. The subcutaneous space was irrigated and any bleeding made hemostatic with a Bovie. The subcutaneous space was approximated with 3-0 Vicryl Plus in a running fashion. The skin was closed with kings. The uterus was massaged and clot was removed from the lower uterine segment. Cytotec 800 micrograms was placed per rectum. The patient was cleaned and taken to the recovery room in stable condition. All sponge, lap, needle and instrument counts were correct. The patient tolerated the procedure well. [facility]ITALChristian
[2017-10-17] MEDS ORDERED: HYDROmorphone HCL 2 MG TAB PO PRN (19:10)
[2017-10-17] MEDS ORDERED: GLYCERIN/WITCH HAZEL LEAF 1 PK TP PRN (20:25)
[2017-10-17] MEDS ORDERED: BENZOCAINE 20% 60 ML BTL TP PRN (20:25)
[2017-10-17] MEDS ORDERED: IBUPROFEN 800 MG TAB PO SCH (20:30)
[2017-10-18] MEDS ORDERED: IBUPROFEN 800 MG TAB PO SCH (01:00)
[2017-10-18] MEDS: cefOXitin/DEX(*) 1GM/50ML PREM 50 ML IVPB SCH ×2 (01:12→06:01)
[2017-10-18 05:28] VITALS: BP 127/77
[2017-10-18] MEDS: IBUPROFEN 800 MG TAB PO SCH ×3 (05:47→21:05)
[2017-10-18 08:30] VITALS: BP 125/68
--- NOTE | 2017-10-18 08:33 | Anesthesia Post Eval Note ---
Anesthesia Post Eval Note Pt able to participate in Eval: Yes Cardiovascular Status: Satisfactory Respiratory Status: Satisfactory Pain Managment: Satisfactory PO Nausea/Vomiting: Satisfactory Temperature Management: Satisfactory Mental Status: Satisfactory Post-Op Hydration Status: Satisfactory Anesthesia Type: CSE Anesthesia Tolerance: patient had some discomfort after when surgeon was suturing and manipulating uterus. IV sedation given with good results. patient ambulatory with VSS. MIRIAM CESAR CRNA Oct 18, 2017 08:33
--- NOTE | 2017-10-18 08:33 | OB/GYN Progress Note ---
OB Subjective Progress Notes Subjective Pain controlled, Tolerating diet and activity. Baby . Normal lochia. GI: POS Nausea, POS Vomiting, POS Flatus : Voiding Well Pain: Mild OB Objective Physical Exam Vital Signs Date Time Temp Pulse Resp B/P (MAP) Pulse Ox O2 Delivery O2 Flow Rate FiO2 10/18/17 06:12 97.8 10/18/17 05:28 81 14 127/77 (94) 93 Room Air 10/17/17 00:00 2.0 Cardiovascular: Regular Rate and Rhythm Respiratory: Clear to Auscultation Abdomen: Soft, Non-Tender, Non-Distended, Bowel Sounds Present, Fundus Firm Incision: Clean, Dry, Intact, [place], Other (ECCHYMOSES ABOVE WOUND) Extremities: No Edema Result Diagram: 10/17/17 0648 Assessment and Plan Problems: (1) Normal Status: Resolved (2) Active labor at term Status: Resolved (3) care following delivery Assessment & Plan: Pain controlled, Tolerating diet and activity. Baby . Normal lochia. Problem Qualifiers (1) Normal : Trimester: third trimester Qualified Codes: Z34.93 - Encounter for supervision of normal , unspecified, third trimester MAGGIE FRANCISCO MD Oct 18, 2017 08:33
[2017-10-18] MEDS ORDERED: ACETAMIN/CODEINE #3 300-30 MG PO PRN (08:55)
[2017-10-18] MEDS: FAMOTIDINE 20 MG TAB PO SCH ×2 (08:58→21:04)
[2017-10-18] MEDS: DOCUSATE CALCIUM 240 MG CAP PO SCH ×2 (08:58→21:05)
[2017-10-18] MEDS: SIMETHICONE 80 MG CHEW CHEW SCH ×4 (08:58→21:05)
[2017-10-18] MEDS: ACETAMINOPHEN 325 MG TAB PO PRN (08:58)
[2017-10-18 11:40] VITALS: BP 115/82
[2017-10-18 15:00] VITALS: BP 124/82
[2017-10-18 19:18] VITALS: BP 127/83
[2017-10-19 00:16] VITALS: BP 126/78
[2017-10-19 05:05] VITALS: BP 117/69
[2017-10-19] MEDS: IBUPROFEN 800 MG TAB PO SCH (06:04)
--- NOTE | 2017-10-19 08:10 | OB/GYN Progress Note ---
OB Subjective Progress Notes Subjective Feeling well, better than yesterday. Ambulating and voiding OK. Good appetite, passing flatus, had a b.m. Feels OK to be discharge home later, if baby is able to go also, or to be discharged to rooming-in status. Baby stable, still under bili lights. OB Objective Physical Exam Vital Signs Date Time Temp Pulse Resp B/P (MAP) Pulse Ox O2 Delivery O2 Flow Rate FiO2 10/19/17 05:05 98.0 72 14 117/69 (85) 95 Room Air 10/17/17 00:00 2.0 General Appearance: Alert/Awake/No Acute Distress Cardiovascular: Regular Rate and Rhythm Respiratory: Clear to Auscultation Abdomen: Soft, Non-Tender, Non-Distended, Bowel Sounds Present, Fundus Firm ( mildly tender, at U) Incision: Clean, Dry, Intact, [place], Other (ECCHYMOSES ABOVE WOUND) Extremities: No Tender Calves, No Edema Psychological: Alert & Oriented X3, Appropriate Mood & Affect Result Diagram: 10/17/17 0648 Assessment and Plan Problems: (1) care following delivery Status: Acute Assessment & Plan: Doing well post , ready for discharge to home or to rooming-in status. (2) Normal Status: Resolved (3) Active labor at term Status: Resolved Problem Qualifiers (1) Normal : Trimester: third trimester Qualified Codes: Z34.93 - Encounter for supervision of normal , unspecified, third trimester AUBRIE VELEZ MD Oct 19, 2017 08:10
[2017-10-19] MEDS ORDERED: DOCU240C67 PO (08:20)
[2017-10-19] MEDS: DOCUSATE CALCIUM 240 MG CAP PO SCH (08:42)
[2017-10-19] MEDS: FAMOTIDINE 20 MG TAB PO SCH (08:42)
[2017-10-19] MEDS: SIMETHICONE 80 MG CHEW CHEW SCH (08:42)
[2017-10-19 08:45] VITALS: BP 128/83
[2017-10-19] MEDS: ACETAMINOPHEN 325 MG TAB PO PRN (08:47)
== END 2017-10-19 10:00 | disposition home or self-care (01) | DRG 766 ==
LOC: OB 19:23
PROVIDERS: ADMIT Obstetrics & Gynecology; ATTEND Obstetrics & Gynecology
PROC: 3E0P7VZ Introduction of Hormone into Female Reproductive, Via Natural or Artificial Opening (ICD-10-PCS; 2017-10-15)
PROC: 3E033VJ Introduction of Other Hormone into Peripheral Vein, Percutaneous Approach (ICD-10-PCS; 2017-10-15)
PROC: 10907ZC Drainage of Amniotic Fluid, Therapeutic from Products of Conception, Via Natural or Artificial Opening (ICD-10-PCS; 2017-10-16)
PROC: 10H07YZ Insertion of Other Device into Products of Conception, Via Natural or Artificial Opening (ICD-10-PCS; 2017-10-16)
PROC: 3E0E7GC Introduction of Other Therapeutic Substance into Products of Conception, Via Natural or Artificial Opening (ICD-10-PCS; 2017-10-16)
PROC: 10D00Z1 Extraction of Products of Conception, Low, Open Approach (ICD-10-PCS; principal; 2017-10-16 19:36)
DX: O62.0 Primary inadequate contractions (principal); O66.40 Failed trial of labor, unspecified; O77.0 Labor and delivery complicated by meconium in amniotic fluid; O76 Abnormality in fetal heart rate and rhythm complicating labor and delivery; Z3A.39 39 weeks gestation of pregnancy; Z37.0 Single live birth
CPT/HCPCS: 36415; 85025; 86850; 86900; 86901; J0694; J1100; J1885; J2250; J2270; J2370; J2405; J2590; J2765; J3010; J3490; J7120; S0020